=== PATIENT | male | born 2000 | race Two or more races ===

== ENCOUNTER 2024-06-08 21:27 | Emergency (ER) | payer MEDICAID ==
[~2024-06-08] VITALS: Ht 177.8 cm; Wt 57.0 kg
[2024-06-08 21:55] VITALS: BP 123/73; PULSE 86; RESP 18; TEMP 97.9; O2SAT 98
[2024-06-08] MEDS: OXYCODONE W/ ACETAMINOPHEN 5/325MG TABLET PO ONE (22:42)
[2024-06-08] MEDS: IBUPROFEN 600 MG TAB PO ONE (22:42)
[2024-06-08] MEDS: SILVER SULFADIAZINE 1 % TOPICAL CREAM 50GM TOP ONE (22:42)
[2024-06-08] MEDS ORDERED: IBUP-1456 PO (23:38)
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
[2024-06-09] MEDS: OXYCODONE W/ ACETAMINOPHEN 5/325MG TABLET PO ONE (00:18)
== END 2024-06-09 00:30 | disposition home or self-care (01) ==
LOC: ER 21:27
DX: T22.211A Burn of second degree of right forearm, initial encounter (principal); T23.201A Burn of second degree of right hand, unspecified site, initial encounter; T22.212A Burn of second degree of left forearm, initial encounter; T23.202A Burn of second degree of left hand, unspecified site, initial encounter; X08.8XXA Exposure to other specified smoke, fire and flames, initial encounter; Y93.89 Activity, other specified; Y92.89 Other specified places as the place of occurrence of the external cause; Y99.8 Other external cause status
CPT/HCPCS: 16000